=== PATIENT | female | born 1935 | race Caucasian/White ===

== ENCOUNTER → 2021-09-18 | Outpatient (CLI) | payer OTHER, BC ==
[~2021-09-18] VITALS: Ht 149.9 cm; Wt 59.0 kg
[~2021-09-18] MED LIST: AROMASIN25 MG PO; LEVOTHYROXINE50 MC1 PO; LOTENSIN HCT 21 EAC3 PO; OMEPRAZOLE 20 M20 M1 PO; PROLIA60 MG/1 ML SUBQ; TYLENOL ARTHRI650 MG PO; VENLAFAXINE HCL75 M2 PO
--- NOTE | 2021-09-20 13:07 | PATH ---
[facility] [address] [place] [address] PATHOLOGY RPT PROCEDURE Name: MARGAYOLANDA Dale Room #: REG MICHAEL Lunsford.#: [id number] Admission: 09/18/21 Date of : 37 Discharge: Report #: [id number] Path Case #: [id number] [facility] Accession Number: [id number] . 01 Material submitted: . stomach - ANTRUM R/O H. PYLORI . 01 Clinical history: . ESOPHAGOGASTRODUODENOSCOPY DYSPHAGIA, GERD HH, SCHATZKI'S RING, GERD, ACID REFLUX . 02 Diagnosis: Gastric antrum, biopsy: - Gastric antrum mucosa with features of mild reactive gastropathy. - An H. pylori immunohistochemical stain is negative for H. pylori like organisms. (ANK:alyssa; 09/20/2021) P 09/20/2021 1045 Local . 02 Electronically signed: . Lili Marshall MD, Pathologist NPI- [id number] . 01 Gross description: . The specimen is received in formalin, labeled "Marga, Yolanda, antrum R/O H. pylori" and consists of 2 hastings irregular tissues aggregating 0.3 x 0.2 x 0.1 cm which are submitted in toto in A1.([place]; 09/19/2021) DKA/DKA 09/19/2021 1042 Local . 02 Pathologist provided ICD-10: R13.10 . 02 CPT . 694587, [id number] Specimen Comment: A courtesy copy of this report has been sent to [phone], [phone] Specimen Comment: [phone] Specimen Comment: Report sent to / DR HDZ Performed at: [address], [place] [id number] MD Supa Syed MD Phone: [phone] Performed at: [address] [id number] MD Lili Marshall MD Phone: [phone]
== END | disposition home or self-care (01) ==
LOC: GI 07:48
PROVIDERS: ATTEND Internal Medicine Gastroenterology
DX: R93.3 Abnormal findings on diagnostic imaging of other parts of digestive tract (principal); R12 Heartburn; K31.9 Disease of stomach and duodenum, unspecified; K22.2 Esophageal obstruction; R13.10 Dysphagia, unspecified; K29.70 Gastritis, unspecified, without bleeding; K44.9 Diaphragmatic hernia without obstruction or gangrene; K21.9 Gastro-esophageal reflux disease without esophagitis; I10 Essential (primary) hypertension; Z98.890 Other specified postprocedural states; Z79.899 Other long term (current) drug therapy; Z90.49 Acquired absence of other specified parts of digestive tract; Z96.651 Presence of right artificial knee joint; Z85.3 Personal history of malignant neoplasm of breast; Z85.42 Personal history of malignant neoplasm of other parts of uterus; Z98.42 Cataract extraction status, left eye; Z98.41 Cataract extraction status, right eye; Z20.822 Contact with and (suspected) exposure to COVID-19; Z85.828 Personal history of other malignant neoplasm of skin
CPT/HCPCS: 62110; 62900